=== PATIENT | female | born 2005 | race Caucasian/White ===

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

== ENCOUNTER 2023-01-02 10:52 | Outpatient (RCR) | payer BC ==
[2022-12-26 11:52] VITALS: BP 112/71
[2022-12-26] MEDS: FERRIC CARBOXYMALTOSE INJ 750 MG in NS (IVPB) 250 ML 250 ML IV SCH (12:17)
[2023-01-02 10:55] VITALS: BP 117/86
[2023-01-02] MEDS: FERRIC CARBOXYMALTOSE INJ 750 MG in NS (IVPB) 250 ML 250 ML IV SCH (11:40)
== END 2023-01-22 | disposition home or self-care (01) ==
LOC: SDC 10:52
PROVIDERS: ATTEND Family Medicine
DX: D50.9 Iron deficiency anemia, unspecified (principal)
CPT/HCPCS: 96365